=== PATIENT | male | born 1955 | race Native Hawaiian/Other Pacific Islander ===

== ENCOUNTER 2019-08-13 11:22 | Emergency (ER) | payer OTHER ==
[~2019-08-13] VITALS: Ht 177.8 cm; Wt 106.6 kg
[~2019-08-13 11:22] MED LIST: BENICAR20 MG PO; LEVO0.1224 PO
[2019-08-13 11:27] VITALS: TEMP 98.2
[2019-08-13 12:59] VITALS: BP 169/82
== END 2019-08-13 12:59 | disposition home or self-care (01) ==
LOC: ED 11:22
PROC: 0HQGXZZ Repair Left Hand Skin, External Approach (ICD-10-PCS; principal; 2019-08-13)
DX: S61.211A Laceration without foreign body of left index finger without damage to nail, initial encounter (principal); S61.213A Laceration without foreign body of left middle finger without damage to nail, initial encounter; W29.3XXA Contact with powered garden and outdoor hand tools and machinery, initial encounter
CPT/HCPCS: 90471; 90715; 96372; 99283; J0696